=== PATIENT | male | born 1980 | race Caucasian/White ===

== ENCOUNTER 2021-01-02 11:02 | Inpatient (IN) ==
[2021-01-02 12:13] LABS: Hematocrit 42.9 % (42.0-52.0); Hemoglobin 14.6 gm/dL (13.5-18.0); Mean Cell Volume 97.5 fl (78-100); Mean Corpuscular Hemoglobin 33.2 pg (27-31); Mean Platelet Volume 10.5 fl (8-11.3); Neutrophil # 12.2 K/mm3 (1.3-6.0); Neutrophil % 77.9 % (42-75.0); Platelet Count 319 K/mm3 (150-450); Red Cell Distribution Width 13.9 % (11.5-14.0); White Blood Count 15.7 K/mm3 (4.0-10.5)
[2021-01-02 12:26] LABS: Albumin * 3.1 gm/dl (3.4-5.0); Anion Gap 13.9 mmol/L (6.8-13.8); BUN/Creatinine Ratio 11.7 (9.0-21.6); Bilirubin, Total 2.1 mg/dL (0.0-1.1); Ca. Corrected For Albumin 9.4 mg/dL (8.4-10.2); Carbon Dioxide 26.5 mmol/L (24-32.6); Potassium 3.4 mmol/L (3.4-4.6); Total Protein 8.4 gm/dL (6.2-8.2)
[2021-01-02 13:35] LABS: Urine Bilirubin 3 mg/dl (NEGATIVE); Urine Blood 250 /ul (NEGATIVE); Urine Ketone 5 mg/dL (NEGATIVE); Urine Protein 100 mg/dL (NEGATIVE); Urine Specific Gravity 1.015 SP.GR. (1.005-1.030); Urine Urobilinogen 4 EU/dl (NORMAL); Urine pH 5.5 pH (5.0-7.0)
[2021-01-02 13:46] LABS: Urine Appearance Turbid (CLEAR); Urine Color Amber; Urine Nitrite Positive (NEGATIVE)
[2021-01-02 13:47] LABS: Urine Bacteria 3+; Urine RBC 25-50 /hpf (0-5); Urine WBC 25-50 /hpf (0-5)
[2021-01-02] MEDS ORDERED: ACETAMINOPHEN 325 MG TABLET PO PRN (13:52)
[2021-01-02] MEDS: ENOXAPARIN SODIUM 40 MG/0.4 ML SYRG SC SCH (14:38)
[2021-01-02] MEDS ORDERED: NORMAL SALINE 1,000 ML IV PRN (15:26)
--- NOTE | 2021-01-02 17:20 | PN ---
Shanti Note - Interim Date: 01/02/21 Time: 17:09 Narrative: 01/02/21 17:09 Patient seen and examined in the floor on 01/02/2021. His labs and imaging studies were reviewed. He has UTI with epididimytis and no acute pyelonephritis. He complains of polyarthralgia which gets worst with infection. He also has neuropathy. His ESR/CRP are elevated. Will get MORALES,RF, CK,LD . His total bilirubin is high. He has no RUQ pain/N/V. Will continue with IV rocephin, IVFwhile awaiting for GS and C& S.
[2021-01-02] MEDS: INSULIN LISPRO 100 UNITS/ML VIAL SC SCH (17:38)
[2021-01-02] MEDS: traMADol HCL 50 MG TABLET PO PRN ×2 (17:38→23:50)
[2021-01-02] MEDS: GABAPENTIN 100 MG CAPSULE PO SCH (17:39)
[2021-01-02 17:49] LABS: CK Total * 143 U/L (0-259); LD 159 U/L (85-227)
[2021-01-02] MEDS: INSULIN GLARGINE,HUM.REC.ANLOG 100 UNITS/ML VIAL SC SCH (21:14)
[2021-01-02] MEDS ORDERED: METOPROLOL SUCCINATE 100 MG TABLET.SA PO ONE (22:50)
[2021-01-03] MEDS: GABAPENTIN 100 MG CAPSULE PO SCH ×3 (00:19→16:47)
[2021-01-03 06:22] LABS: Hemoglobin 13.6 gm/dL (13.5-18.0); Mean Cell Volume 98.8 fl (78-100); Mean Corpuscular Hemoglobin 32.8 pg (27-31); Mean Corpuscular Hgb Conc 33.2 g/dl (32-36); Mean Platelet Volume 10.2 fl (8-11.3); Neutrophil # 10.7 K/mm3 (1.3-6.0); Platelet Count 281 K/mm3 (150-450); Red Blood Count 4.15 M/mm3 (4.7-6.0); Red Cell Distribution Width 13.9 % (11.5-14.0); White Blood Count 15.5 K/mm3 (4.0-10.5)
[2021-01-03 06:23] LABS: Total Cells Counted 100
[2021-01-03 06:34] LABS: Anion Gap 11.8 mmol/L (6.8-13.8); BUN/Creatinine Ratio 9.6 (9.0-21.6); Calcium * 8.6 mg/dL (7.9-10.9); Carbon Dioxide 28.4 mmol/L (24-32.6); Estimated Creat Clear 113.5; Potassium 4.2 mmol/L (3.4-4.6)
[2021-01-03 06:46] LABS: Eosinophil 2 % (0-3); Lymphocyte 19 % (20-51); Monocyte 14 % (0-9); Neutrophil 65 % (42-75); Neutrophil # 10.1 K/mm3 (1.3-6.0); Platelet Estimate Normal (NORMAL); RBC Morphology Normal (NORMAL)
[2021-01-03] MEDS: INSULIN LISPRO 100 UNITS/ML VIAL SC SCH ×3 (08:09→16:49)
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
[2021-01-03] MEDS: LOSARTAN POTASSIUM 50 MG TABLET PO SCH (09:15)
[2021-01-03] MEDS: ASPIRIN 81 MG TABLET.DR PO SCH (09:15)
[2021-01-03] MEDS: METOPROLOL SUCCINATE 100 MG TABLET.SA PO SCH (09:15)
[2021-01-03] MEDS: ROSUVASTATIN CALCIUM 10 MG TABLET PO SCH (09:15)
[2021-01-03] MEDS: traMADol HCL 50 MG TABLET PO PRN (10:14)
[2021-01-03] MEDS: amLODIPine BESYLATE 5 MG TABLET PO SCH (13:29)
[2021-01-03] MEDS: ENOXAPARIN SODIUM 40 MG/0.4 ML SYRG SC SCH (15:36)
[2021-01-03] MEDS: LORazepam 2 MG/ML DISP.SYRIN IV PRN ×2 (16:48→22:06)
[2021-01-03] MEDS: INSULIN GLARGINE,HUM.REC.ANLOG 100 UNITS/ML VIAL SC SCH (22:09)
[2021-01-04] MEDS: GABAPENTIN 100 MG CAPSULE PO SCH ×2 (00:31→09:07)
[2021-01-04 07:17] LABS: Hemoglobin 14.6 gm/dL (13.5-18.0); Mean Cell Volume 97.7 fl (78-100); Mean Corpuscular Hemoglobin 33.2 pg (27-31); Mean Platelet Volume 10.5 fl (8-11.3); Neutrophil # 6.4 K/mm3 (1.3-6.0); Neutrophil % 55.4 % (42-75.0); Platelet Count 325 K/mm3 (150-450); Red Cell Distribution Width 13.5 % (11.5-14.0); White Blood Count 11.5 K/mm3 (4.0-10.5)
[2021-01-04 07:18] LABS: Total Cells Counted 100
[2021-01-04 07:45] LABS: Eosinophil 3 % (0-3); Lymphocyte 26 % (20-51); Monocyte 15 % (0-9); Neutrophil 56 % (42-75); Neutrophil # 6.4 K/mm3 (1.3-6.0)
[2021-01-04 07:46] LABS: Platelet Estimate Normal (NORMAL); RBC Morphology Normal (NORMAL)
[2021-01-04] MEDS: INSULIN LISPRO 100 UNITS/ML VIAL SC SCH (09:05)
[2021-01-04] MEDS: METOPROLOL SUCCINATE 100 MG TABLET.SA PO SCH (09:06)
[2021-01-04] MEDS: LOSARTAN POTASSIUM 50 MG TABLET PO SCH (09:06)
[2021-01-04] MEDS: ASPIRIN 81 MG TABLET.DR PO SCH (09:06)
[2021-01-04] MEDS: ROSUVASTATIN CALCIUM 10 MG TABLET PO SCH (09:07)
[2021-01-04] MEDS: amLODIPine BESYLATE 5 MG TABLET PO SCH (09:09)
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
[2021-01-04 11:41] VITALS: BP 140/104
[2021-01-05 15:11] LABS: SM Antibody <1.0 NEG AI (<1.0 NEG); SM/RNP Antibodies <1.0 NEG AI (<1.0 NEG)
[2021-01-05 21:43] LABS: DNA (DS) Antibody 1 IU/mL; JO-1 Antibody <1.0 NEG AI (<1.0 NEG)
== END 2021-01-04 11:25 | disposition home or self-care (01) | DRG 699 ==
LOC: CCFAL → MS 11:02
PROVIDERS: ADMIT Internal Medicine; ATTEND Internal Medicine